=== PATIENT | female | born 1995 | race Caucasian/White ===

== ENCOUNTER 2016-08-12 03:14 | Inpatient (IN) | payer BC ==
[~2016-08-12] VITALS: Ht 162.6 cm; Wt 88.2 kg
[2016-08-12] VITALS (38 sets, daily range): BP systolic 105–163; BP diastolic 60–103; PULSE 64–111; TEMP 98.1–98.4
[~2016-08-12 03:14] MED LIST: NORCO 325 MG-51 TAB PO
[2016-08-12] MEDS ORDERED: PRENATAL1 TA7 PO (03:45)
[2016-08-12] MEDS ORDERED: TRANDATE 100MG100 MG PO (03:46)
[2016-08-12] MEDS ORDERED: IRON325 M2 PO (03:47)
[2016-08-12 05:43] LABS: BASO % 0.2 % (0.0-2.0); EOS # 0.1 (0.0-0.7); EOS % 0.8 % (0-4.0); GRAN # 6.3 (1.4-6.5); GRAN % 61.6 % (42.2-75.2); LYMPH # 3.3 (1.2-3.4); LYMPH % 32.2 % (20.0-51.0); MEAN CELL VOLUME 82 fl (80.0-100.0); MEAN CORPUSCULAR HGB CONC 33 g/dl (33.0-37.0); MEAN PLATELET VOLUME 10.5 fl (7.4-10.4); MONO # 0.5 (0.1-0.6); MONO % 4.7 % (1.7-9.3); PLATELET COUNT 225 K/mm3 (130-400); RED BLOOD COUNT 4.24 M/mm3 (4.10-5.30); REDCELL DISTRIBUTION WIDTH-CV 15.2 % (11.5-14.5); WHITE BLOOD COUNT 10.2 K/mm3 (4.8-10.8)
[2016-08-12 06:01] LABS: ADJUSTED CALCIUM 9.2 mg/dL (8.4-10.2); ALBUMIN 3.7 gm/dL (3.5-5.0); BILIRUBIN,TOTAL 0.4 mg/dL (0.0-1.0); CREATININE, serum 0.57 mg/dL (0.52-1.25); POTASSIUM 3.8 mmol/L (3.4-5.0)
[2016-08-12 06:09] LABS: HEMATOCRIT 34.7 % (37.0-47.0); HEMOGLOBIN 11.5 g/dl (12.5-16.0); MEAN CORPUSCULAR HEMOGLOBIN 27 pg (27.0-31.0)
[2016-08-12] MEDS ORDERED: PERCOCET 325 MG1 TA2 PO (10:23)
[2016-08-12] MEDS ORDERED: IBU800 M1 PO (10:23)
[2016-08-13 04:00] VITALS: BP 142/86; PULSE 72; TEMP 98
[2016-08-13 07:03] VITALS: BP 120/64; PULSE 78; TEMP 98.1
[2016-08-13 16:17] VITALS: BP 124/68; PULSE 78; TEMP 97.6
[2016-08-13 20:20] VITALS: BP 124/70; PULSE 79; TEMP 98.2
[2016-08-14 07:30] VITALS: BP 126/74; PULSE 86; TEMP 98
== END 2016-08-14 12:35 | disposition home or self-care (01) | DRG 774 ==
LOC: LDRO 03:14 → LDR 04:40 → OB 04:40
PROVIDERS: Obstetrics & Gynecology
PROC: 10E0XZZ Delivery of Products of Conception, External Approach (ICD-10-PCS; principal; 2016-08-12)
PROC: 0UQMXZZ Repair Vulva, External Approach (ICD-10-PCS; 2016-08-12)
PROC: 0HQ9XZZ Repair Perineum Skin, External Approach (ICD-10-PCS; 2016-08-12)
DX: O10.92 Unspecified pre-existing hypertension complicating childbirth (principal); O71.5 Other obstetric injury to pelvic organs; O77.0 Labor and delivery complicated by meconium in amniotic fluid; O70.0 First degree perineal laceration during delivery; Z3A.37 37 weeks gestation of pregnancy; Z37.0 Single live birth
CPT/HCPCS: J2590; J7120

== ENCOUNTER 2023-06-26 02:41 | Emergency (ER) | payer SELFPAY ==
[~2023-06-26] VITALS: Ht 162.6 cm; Wt 95.9 kg
[~2023-06-26 02:41] MED LIST changes: +IBU800 M1 PO; +IRON325 M2 PO; +PERCOCET 325 MG1 TA2 PO; +PRENATAL1 TA7 PO; +TRANDATE 100MG100 MG PO
[2023-06-26 02:44] VITALS: BP 145/111; TEMP 98.4
[2023-06-26] MEDS ORDERED: NAPROSYN500 MG PO (02:55)
[2023-06-26] MEDS ORDERED: AMOXICILLIN 50500 MG PO (02:55)
[2023-06-26] MEDS ORDERED: Naproxen 250 MG TAB PO ONE (03:00)
[2023-06-26] MEDS ORDERED: Amoxicillin 500 MG CAP PO ONE (03:00)
[2023-06-26 03:12] VITALS: PULSE 87
== END 2023-06-26 03:12 | disposition home or self-care (01) ==
LOC: COL.ER 02:41
DX: H66.92 Otitis media, unspecified, left ear (principal); I10 Essential (primary) hypertension; Z79.899 Other long term (current) drug therapy